=== PATIENT | male | born 1960 | race Caucasian/White ===

== ENCOUNTER 2017-03-01 14:27 | Observation (INO) | payer OTHER ==
[~2017-03-01] VITALS: Ht 177.8 cm; Wt 88.0 kg
[~2017-03-01 14:27] MED LIST: CHOL1TAB35; GABA600T PO; HYDR12.56 PO; KETOROLAC TROMETHAMINE 60 MG/2 ML (IM) VIAL IM ONE; LACTATED RINGER'S 1000 ML INJ 1,000 ML IV ONE; LISI10TA3 PO; METH500T3 PO; NEOSTIGMINE 3 MG/3 ML SYR IV ONE; ONDANSETRON HCL 4 MG/2 ML VIAL IV PUSH ONE; PROPOFOL 200 MG/20 ML AMP IV ONE; TAMS0.4C4 PO; TYLE325T PO; VENL75TA PO
[2017-03-01 14:52] VITALS: BP 135/82; PULSE 50; RESP 16; TEMP 97.7; O2SAT 100
--- NOTE | 2017-03-01 15:27 | PD ---
HPI Chief Complaint: Abdominal Pain Time Seen by Provider: 15:24 Travel History International Travel<30 days: No Contact w/Intl Traveler<30days: No Traveled to known affect area: No History of Present Illness HPI 56-year-old male that presents to the ED for evaluation of epigastric abdominal pain. Patient was seen on the phone [facility]. Patient was seen and evaluated and had imaging that showed possible gallstones as well as possible dilatation of the gallbladder. Patient went to the hospital for evaluation of epigastric pain that started in the morning. Per patient had no history of this in the past. Nothing makes it better or worse. Patient was given pain medication with some relief. Patient complains of nausea and vomiting. Patient essentially was transferred here for evaluation of the possible gallbladder disease for an ultrasound. Facility could not do ultrasound at the site so patient was sent here for this. Patient reports that his pain is 6 out of 10. He denies any bowel movement issues. He still has his gallbladder. No previous surgeries. No trauma. No allergies to medication. Patient was accepted by Dr. Terry. Last ate around 3 am. PFSH Past Medical History Arthritis: Yes Anxiety: Yes Depression: Yes Cardiovascular Problems: Yes (HTN) Diminished Hearing: Yes (not with pt) Hypertension: Yes Past Surgical History Abdominal Surgery: Yes (hernia) Social History Alcohol Use: No Tobacco Use: No Substance Use: No Allergies-Medications (Allergen,Severity, Reaction): Coded Allergies: No Known Allergies (Unverified , 03/01/17) Reported Meds & Prescriptions Reported Meds & Active Scripts Active Reported Hydrochlorothiazide 12.5 Mg Cap 12.5 Mg PO DAILY Lisinopril 10 Mg Tab 10 Mg PO DAILY Hydrochlorothiazide 12.5 Mg Tab 12.5 Mg PO DAILY Tamsulosin (Tamsulosin HCl) 0.4 Mg Cap 0.4 Mg PO HS Gabapentin 600 Mg Tab 600 Mg PO BID Methocarbamol 500 Mg Tab 500 Mg PO BID D 2000 (Cholecalciferol) 2,000 Unit Tab Effexor (Venlafaxine HCl) 75 Mg Tab 150 Mg PO Q12H Tylenol (Acetaminophen) 325 Mg Tab 650 Mg PO Q4H PRN Review of Systems Except as stated in HPI: all other systems reviewed are Neg Physical Exam Narrative GENERAL: SKIN: Warm and dry. HEAD: Atraumatic. Normocephalic. EYES: Pupils equal and round. No scleral icterus. No injection or drainage. ENT: No nasal bleeding or discharge. Mucous membranes pink and moist. Tongue is midline. No uvula deviation. NECK: Trachea midline. No JVD. CARDIOVASCULAR: Regular rate and rhythm. No murmurs, S3, S4. RESPIRATORY: No accessory muscle use. Clear to auscultation. Breath sounds equal bilaterally. GASTROINTESTINAL: Abdomen soft, reproducible tenderness to palpation in the epigastric and right upper quadrant but more noted on epigastric area, nondistended. Hepatic and splenic margins not palpable. MUSCULOSKELETAL: Extremities without clubbing, cyanosis, or edema. No obvious deformities. NEUROLOGICAL: Awake and alert. No obvious cranial nerve deficits. Motor grossly within normal limits. Five out of 5 muscle strength in the arms and legs. Normal speech. PSYCHIATRIC: Appropriate mood and affect; insight and judgment normal. Data Data Last Documented VS Vital Signs Date Time Temp Pulse Resp B/P Pulse Ox O2 Delivery O2 Flow Rate FiO2 03/01/17 16:12 54 16 159/79 98 03/01/17 14:52 97.7 Orders Us Abdomen Gallbladder (03/01/17 14:52) Morphine Inj (Morphine Inj) (03/01/17 16:15) Ondansetron Inj (Zofran Inj) (03/01/17 16:15) Consult Moses Nfs (03/01/17 ) Consent (03/01/17 17:17) Cefazolin 2 Gm Premix (Ancef 2 Gm Premix (03/01/17 17:30) Admit Order (Ed Use Only) (03/01/17 17:33) MDM Medical Decision Making Medical Screen Exam Complete: Yes Emergency Medical Condition: Yes Medical Record Reviewed: Yes Interpretation(s) Last Impressions Gall Bladder Ultrasound 03/01/17 6639 Signed Impressions: Service Date/Time: Wednesday, March 01, 2017 15:09 - CONCLUSION: 1. Numerous gallstones with positive sonographic Milligan sign. No biliary ductal dilatation. No free fluid. Jewel Hatch MD Differential Diagnosis Gallbladder disease versus cholelithiasis versus cholecystitis versus pancreatitis Narrative Course 56-year-old male that presents to the ED for evaluation of epigastric abdominal pain. Patient was properly examined and was found to have signs and symptoms concerning for gallbladder disease. Patient was sent here via ambulance from our ER facility in [place] for evaluation of ultrasound. Ultrasound was ordered by me. Ultrasound showed numerous gallstones and positive Milligan sign and ultrasound. Patient does have a bandemia but no leukocytosis. LFTs and lipase are within normal limits. This was discussed in my attending who evaluated the patient with me and recommends speaking with Dr. Hudson. I spoke with Dr. Hudson for Gen. surgery who will come here and see the patient. Patient was told this and agrees with plan. Diagnosis Primary Impression: Cholecystitis Additional Impression: Epigastric abdominal pain Admitting Information Admitting Physician Requests: Observation Arturo Rodas Mar 01, 2017 15:27
--- NOTE | 2017-03-01 15:50 | RADRPT ---
EXAM DATE/TIME: 03/01/2017 15:09 [facility] COMPARISON: No previous studies available for comparison. INDICATIONS : Right upper quadrant pain. MEDICAL HISTORY : Arthritis. Hypertension. Depression. Anxiety. Eye problems. SURGICAL HISTORY : Hernia repair. ENCOUNTER: Initial ACUITY: 1 day PAIN SCORE: 9/10 LOCATION: Right upper quadrant MEASUREMENTS: LIVER: 15.2 cm length COMMON DUCT: 4 mm RIGHT KIDNEY: 9.0 x 5.8 x 5.6 cm FINDINGS: Numerous gallstones in gallbladder with positive sonographic Milligan's sign. Common bile duct measures 4 mm. Normal flow direction in the portal vein. Liver measures 15 cm in length. Pancreas not well-vi sualized. Right kidney measures 9 cm in length the hydronephrosis. No free fluid. CONCLUSION: 1. Numerous gallstones with positive sonographic Milligan sign. No biliary ductal dilatation. No free f luid. Jewel Hatch MD on March 01, 2017 at 15:47 Board Certified Radiologist. This report was verified electronically.
[2017-03-01 16:12] VITALS: BP 159/79; PULSE 54; RESP 16; O2SAT 98
[2017-03-01] MEDS ORDERED: MORPHINE SULFATE 4 MG/ML INJ IV PUSH ONE (16:15)
[2017-03-01] MEDS ORDERED: ONDANSETRON HCL 4 MG/2 ML VIAL IV PUSH ONE (16:15)
[2017-03-01] MEDS ORDERED: ceFAZolin 2 GM PREMIX 50 ML IV SCH (17:30)
[2017-03-01] MEDS ORDERED: HYDR12.57 PO (17:56)
[2017-03-01] MEDS ORDERED: BUPIVACAINE/EPINEPHRINE 0.5% PF 10 ML VIAL ONE (18:31)
[2017-03-01 18:32] VITALS: BP 158/80
--- NOTE | 2017-03-01 18:36 | PD ---
Data Data Last Documented VS Vital Signs Date Time Temp Pulse Resp B/P Pulse Ox O2 Delivery O2 Flow Rate FiO2 03/01/17 16:12 54 16 159/79 98 03/01/17 14:52 97.7 Orders Us Abdomen Gallbladder (03/01/17 14:52) Morphine Inj (Morphine Inj) (03/01/17 16:15) Ondansetron Inj (Zofran Inj) (03/01/17 16:15) Consult Moses Nfs (03/01/17 ) Consent (03/01/17 17:17) Cefazolin 2 Gm Premix (Ancef 2 Gm Premix (03/01/17 17:30) Admit Order (Ed Use Only) (03/01/17 17:33) MDM Supervised Visit with [facility]: Yes Narrative Course The history, exam, and medical decision-making in the associated midlevel provider note were completed with my assistance. I reviewed and agree with the findings presented. I attest that I had a [id number] encounter with the patient on the same day, and personally performed and documented my assessment and findings in the medical record. *My assessment and Findings: This is a 56-year-old male who was transferred here from [place] after seeing Dr. Hanson who was concerned about the patient 's gallbladder. The patient presented to the emergency department with right upper quadrant abdominal pain and vomiting. Patient is tender both in the epigastrium and in the right upper quadrant. Ultrasound demonstrates a large gallbladder with multiple stones and reports a sonographic Milligan's sign. I think it's reasonable that the patient is developing early acute cholecystitis. He did have a 7% bandemia on labs. Patient will be admitted to Dr. Hudson's service for surgical intervention. Diagnosis Primary Impression: Cholecystitis Additional Impression: Epigastric abdominal pain Alyson Olson MD Mar 01, 2017 18:36
[2017-03-01] MEDS ORDERED: MIDAZOLAM HCL 2 MG/2 ML VIAL ONE (18:59)
[2017-03-01] MEDS ORDERED: FAMOTIDINE 20 MG/2 ML VIAL ONE (18:59)
[2017-03-01 19:06] VITALS: PULSE 51
[2017-03-01 20:00] VITALS: BP 157/84; PULSE 78; RESP 20; TEMP 98.3; O2SAT 97
[2017-03-01] MEDS ORDERED: fentaNYL CITRATE 250 MCG/5 ML AMP ONE (20:12)
[2017-03-01] MEDS ORDERED: *MEPERIDINE 25 MG INJ VIAL PERIprocedural Use ONLY ONE (21:41)
[2017-03-01] MEDS ORDERED: DO NOT ADM ANY ANTICOAGULANT DRUGS PRN (22:15)
--- NOTE | 2017-03-01 22:40 | HHI.PR ---
Immediate Post Op Note Procedure Date: Mar 01, 2017 Pre Op Diagnosis: symptomatic cholelithiasis with cholecysitits Post Op Diagnosis: same Surgeon: Wayne Hudson MD Major Gifts Director(s): see or sheet Procedure: lap brian Findings: distended gallbladder with large multiple stones Complications: none Specimen(s) removed: gallbladder Estimated blood loss: 5cc Anesthesia: General Drains: None Patient to: PACU Patient Condition: Good Wayne Hudson MD Mar 01, 2017 22:40
[2017-03-01] MEDS ORDERED: SODIUM CHLORIDE 0.9% FLUSH 10 ML FLUSH IV FLUSH PRN (22:45)
[2017-03-01] MEDS ORDERED: diphenhydrAMINE HCL 25 MG CAP PO PRN (22:45)
[2017-03-01] MEDS ORDERED: ACETAMINOPHEN/HYDROcodone 325 MG/5 MG TAB PO PRN (22:45)
[2017-03-01] MEDS ORDERED: KETOROLAC TROMETHAMINE 30 MG/ML (IVP) VIAL IVP PRN (22:45)
[2017-03-01] MEDS ORDERED: ONDANSETRON HCL 4 MG/2 ML VIAL IV PRN (22:45)
[2017-03-01] MEDS ORDERED: Post-op Orders (for Pharmacy) MISC XX ONE (22:45)
[2017-03-01] MEDS ORDERED: HYDROmorphone HCL PF 1 MG/ML VIAL IV PRN (22:45)
[2017-03-01 23:00] VITALS: BP 157/84; PULSE 78; RESP 20; TEMP 98; O2SAT 97
[2017-03-01] MEDS: DOCUSATE SODIUM 100 MG CAP PO SCH (23:28)
[2017-03-01] MEDS: SODIUM CHLORIDE 0.9% FLUSH 10 ML FLUSH IV FLUSH SCH (23:29)
[2017-03-01] MEDS: metroNIDAZOLE 500 MG INJ 100 ML IV SCH (23:29)
[2017-03-02 04:00] VITALS: BP 129/79; PULSE 88; RESP 19; TEMP 97.5; O2SAT 97
[2017-03-02 06:02] LABS: AUTOMATED NEUTROPHIL # 8.4 TH/MM3 (1.8-7.7); BASOPHIL % 0.3 % (0.0-2.0); EOSINOPHIL % 0.2 % (0.0-4.0); HEMATOCRIT 41.1 % (39.0-51.0); HEMO FLAGS DIFF FINAL; LYMPH % 14.2 % (9.0-44.0); LYMPHOCYTE # 1.5 TH/MM3 (1.0-4.8); MONO % 6.2 % (0.0-8.0); NEUT % 79.1 % (16.0-70.0); PLATELET COUNT 242 TH/MM3 (150-450); RED BLOOD COUNT 4.52 MIL/MM3 (4.50-5.90); RED CELL DISTRIBUTION WIDTH 13.9 % (11.6-17.2); WHITE BLOOD COUNT 10.6 TH/MM3 (4.0-11.0)
[2017-03-02] MEDS ORDERED: SCOPOLAMINE 1.5 MG PATCH T-DERMAL ONE (06:15)
[2017-03-02] MEDS: METOCLOPRAMIDE HCL 10 MG/2 ML VIAL IV SCH ×3 (06:24→18:01)
[2017-03-02 06:34] LABS: BICARBONATE 24.4 MEQ/L (21.0-32.0); POTASSIUM 3.7 MEQ/L (3.5-5.1)
--- NOTE | 2017-03-02 07:20 | HHI.PR ---
Subjective Subjective Notes vomited this am, pain controlled Objective Vitals/I&O Vital Signs Date Time Temp Pulse Resp B/P Pulse Ox O2 Delivery O2 Flow Rate FiO2 03/02/17 04:00 97.5 88 19 129/79 97 03/01/17 22:00 Room Air 03/01/17 21:45 2 Labs Laboratory Tests Test 03/02/17 04:25 White Blood Count 10.6 Red Blood Count 4.52 Hemoglobin 14.0 Hematocrit 41.1 Mean Corpuscular Volume 91.0 Mean Corpuscular Hemoglobin 31.0 Mean Corpuscular Hemoglobin 34.0 Concent Red Cell Distribution Width 13.9 Platelet Count 242 Mean Platelet Volume 8.6 Neutrophils (%) (Auto) 79.1 Lymphocytes (%) (Auto) 14.2 Monocytes (%) (Auto) 6.2 Eosinophils (%) (Auto) 0.2 Basophils (%) (Auto) 0.3 Neutrophils # (Auto) 8.4 Lymphocytes # (Auto) 1.5 Monocytes # (Auto) 0.7 Eosinophils # (Auto) 0.0 Basophils # (Auto) 0.0 CBC Comment DIFF FINAL Differential Comment Sodium Level 141 Potassium Level 3.7 Chloride Level 108 Carbon Dioxide Level 24.4 Anion Gap 9 Blood Urea Nitrogen 14 Creatinine 0.88 Estimat Glomerular Filtration 90 Rate Random Glucose 94 Calcium Level 8.6 Cardiovascular: Regular Lungs: Clear Abdomen: Other (soft, incisional tenderness) A/P Assessment and Plan POD 1 Lap brian PLAN OOB zofran, reglan, scop patch for nausea clear diet ok to advance if nausea improved d/c planning today or tomorrow Wayne Hudson MD Mar 02, 2017 07:20
[2017-03-02] MEDS: DOCUSATE SODIUM 100 MG CAP PO SCH ×3 (07:52→20:15)
[2017-03-02 08:00] VITALS: BP 100/52; PULSE 67; RESP 18; TEMP 99.3; O2SAT 97
[2017-03-02] MEDS: metroNIDAZOLE 500 MG INJ 100 ML IV SCH ×2 (08:15→15:25)
[2017-03-02] MEDS: SODIUM CHLORIDE 0.9% FLUSH 10 ML FLUSH IV FLUSH SCH ×2 (08:15→20:15)
--- NOTE | 2017-03-02 08:18 | MH ---
cc: REAL BRASWELL MD DATE OF ADMISSION: 03/01/2017 CHIEF COMPLAINT Right upper quadrant abdominal pain. HISTORY OF PRESENT ILLNESS The patient is a 56-year-old male who presents with epigastric right upper quadrant abdominal pain. He states the pain started at 03:00 a.m. this morning, was initially 8/10, sharp, radiated from the epigastric to the right side and the patient never had this pain before. He nothing makes the pain better or worse and came to the emergency department for further evaluation including CT scan showing multiple gallstones and gallbladder. He had further workup including gallbladder ultrasound consistent with cholelithiasis and cholecystitis. The patient also had associated nausea and vomiting. Denies fevers or chills. Surgery was consulted for further evaluation and management. On my exam the patient confirms above and states this pain is pretty severe in nature. PAST MEDICAL HISTORY 1. Hypertension. 2. Depression. 3. Degenerative joint disease. PAST SURGICAL HISTORY Mesh ventral hernia repair 1 year ago. SOCIAL HISTORY Denies smoking, EtOH or IVDA. MEDICATION ALLERGIES Denies. MEDICATIONS See EMR. FAMILY HISTORY Mother with diabetes. Father with colon cancer. REVIEW OF SYSTEMS GENERAL: The patient denies fever or headache. HEENT: Denies eye pain, ear pain. NECK: Denies swelling or pain. RESPIRATORY: Denies cough or wheeze. CARDIOVASCULAR EXAM: No palpitations or chest pain. GI: Complains of nausea, vomiting, abdominal pain. : Denies dysuria, hematuria. ENDOCRINE: Denies polyuria, polydipsia. MUSCULOSKELETAL: Denies arthralgias or myalgia. PSYCH: Denies change in mood or affect. PHYSICAL EXAMINATION GENERAL: The patient in no acute distress. VITAL SIGNS: Temperature 97.7, pulse 54, respirations 16, blood pressure 159/76, pulse ox 98%. HEENT: PERRLA, pupils equal, round, reactive. No scleral icterus. NECK: Supple. Trachea midline. LUNGS: Clear to auscultation bilateral. Bilateral expansion. HEART: S1, S2 regular. ABDOMEN: Soft, positive tenderness to palpation right upper quadrant. No rebound, no guarding. Well-healed surgical scars. EXTREMITIES: Warm, well-perfused. NEUROLOGIC: GCS of 15, 5/5 motor in all extremities. PSYCH: Normal mood and affect. LABORATORY AND DIAGNOSTIC DATA Sodium 141, potassium 4, chloride 106, BUN is 16, creatinine is 1. T-bili is 0.3, AST is 27, ALT 34, alkaline phosphatase 96, lipase 227. WBC is 8.9, hemoglobin 14, hematocrit 40, platelets 286. IMPRESSION CT scan reviewed by myself showing distended gallbladder, multiple stones, evidence of abdominal mesh. No evidence of recurrent hernia. ASSESSMENT Patient with right upper quadrant pain consistent with cholelithiasis, symptomatic cholecystitis. PLAN After a full clinical, radiologic and laboratory workup the patient with above-named issues including acute symptomatic cholelithiasis with cholecystitis. At this point we will decide take the patient to the operating room for laparoscopic cholecystectomy. Discussed with the patient in detail who states understanding, agreed and would like to proceed. We will keep the patient n.p.o., give IV fluids, IV antibiotics, pain control and admit to the floor postoperatively. Discussed with the patient in detail. MD LENNOX Lua/PRIYANKA /10:59 PM /8:13 AM
[2017-03-02 12:00] VITALS: BP 122/81; PULSE 87; RESP 18; TEMP 95.8; O2SAT 97
[2017-03-02] MEDS: ACETAMINOPHEN/HYDROcodone 325 MG/5 MG TAB PO PRN ×2 (13:00→20:14)
--- NOTE | 2017-03-02 13:30 | MP ---
cc: REAL HUDSON MD DATE OF SURGERY 03/01/2017 PREOPERATIVE DIAGNOSIS Symptomatic cholelithiasis with cholecystitis. POSTOPERATIVE DIAGNOSIS Symptomatic cholelithiasis with cholecystitis. PROCEDURE PERFORMED Laparoscopic cholecystectomy. SURGEON Dr. Real Hudson BOOK ILLUSTRATOR See OR sheet. ANESTHESIA GETA. IV FLUIDS See anesthesia sheet. ESTIMATED BLOOD LOSS 5 cc. DRAINS None. COMPLICATIONS None. WOUND CLASSIFICATION Clean contaminated. FINDINGS Distended gallbladder. Very large multiple stones throughout the entire gallbladder. Thickened gallbladder wall. INDICATION The patient is a 56-year-old male who presents with acute onset right upper quadrant pain. Ultrasound and CT scan confirmed cholelithiasis, symptomatic cholecystitis. Plan for operative intervention. DETAILS OF PROCEDURE The patient was taken to the operating suite, placed in supine position. He was prepped and draped in the usual sterile fashion after induction of general endotracheal anesthesia. Brief time-out was done stating correct patient, procedure, surgical site. We were all in agreement with this. Attention was first directed to the left upper quadrant. A small stab/alber incision was made. Veress needle entered the abdomen and insufflated to 15-mm pneumoperitoneum. On initial inspection there was noted to be significant adhesions to anterior abdominal wall mesh at the midline. One other port was placed in the right mid anterior axillary line subcostal, 5-mm, followed by a midclavicular right subcostal port. These ports were used to take down some of the adhesions and lyse in order to place epigastric 12-mm port. Another port was placed at the umbilicus, 5-mm. Adhesions had to be cleared out in order to place this port as well. The patient was placed in reverse Trendelenburg and pointed to the left. The gallbladder was identified and noted to be extremely dilated, distended and Endo-needle was used to decompress the gallbladder. 50 cc of bile was removed and multiple large stones were noted to be in the gallbladder. The gallbladder was grasped, retracted cephalad. The cystic duct and cystic artery were dissected out in the usual fashion using [place] electro Bovie cautery. Two clips were placed proximal and one distal on both the cystic artery and cystic duct. The gallbladder was removed from the gallbladder fossa. Hemostasis was obtained with electro Bovie cautery, a clip placed for further hemostasis. Irrigation was done to the right upper quadrant. Electro Bovie cautery was used for again all hemostasis. The gallbladder was removed in the EndoCatch bag through the epigastric port. The port had to be extended slightly in order to facilitate stone removal due to very large stones and forceps also used to crush stones and removed from the gallbladder. Next, after inspection of fossa noted be hemostatic, the patient was placed flat and pneumoperitoneum removed. The ports were removed. 0 Vicryl was used to do [id number] on the fascia. 4-0 Monocryl closed the subcuticular ports after injection of local anesthetic. The patient tolerated the procedure well. Sterile dressings were placed. The patient was x-rayed and taken stable to the PACU. All lap and instrument counts were correct, no complication. MD LENNOX Lua/PRIYANKA /11:05 PM /1:24 PM
--- NOTE | 2017-03-02 14:16 | EKG ---
Date Performed: 03/01/2017 Time Performed: 19:03:20 PTAGE: 56 years EKG: SINUS BRADYCARDIA BORDERLINE ECG NO PREVIOUS TRACING DOCTOR: Tahir Dawson Interpretating Date/Time 03/02/2017 14:13:58
[2017-03-02 16:42] VITALS: BP 122/81; PULSE 62; RESP 18; TEMP 98.1; O2SAT 97
[2017-03-02 20:11] VITALS: BP 117/69; PULSE 68; RESP 20; TEMP 98.4; O2SAT 100
[2017-03-02] MEDS ORDERED: HEPARIN SODIUM - SQ 10,000 UNITS/ML VIAL SQ SCH (21:00)
== END 2017-03-02 21:18 | disposition home or self-care (01) ==
LOC: NEPE 14:27 → NEDA 17:35 → N07B 22:17
PROVIDERS: ADMIT Surgery; ATTEND Surgery
DX: R10.11 Right upper quadrant pain (principal); K80.20 Calculus of gallbladder without cholecystitis without obstruction; K82.8 Other specified diseases of gallbladder; R00.1 Bradycardia, unspecified; R11.0 Nausea; I10 Essential (primary) hypertension; F32.9 Major depressive disorder, single episode, unspecified; F41.9 Anxiety disorder, unspecified; M19.90 Unspecified osteoarthritis, unspecified site; H91.90 Unspecified hearing loss, unspecified ear; Z79.899 Other long term (current) drug therapy
CPT/HCPCS: 00790; 47562; 71010; 71275; 74174; 76705; 80048; 80076; 83690; 83735; 83880; 84484; 85007; 85025; 85027; 85379; 85610; 85730; 88304; 93005; 94150; 96361; 96374; 96375; 96376; 99285; C9113; G0378; J0690; J1170; J1885; J2175; J2250; J2270; J2405; J2710; J2765; J3010; J7030; J7120; Q9967